=== PATIENT | male | born 1960 | race Hispanic/Latino ===

== ENCOUNTER → 2023-11-08 | Outpatient (CLI) | payer OTHER, MEDICARE | END | disposition home or self-care (01) | LOC: SHCH 08:48 | PROVIDERS: ATTEND Internal Medicine Cardiovascular Disease | DX: I35.0 Nonrheumatic aortic (valve) stenosis (principal); R01.1 Cardiac murmur, unspecified; E11.9 Type 2 diabetes mellitus without complications; E78.5 Hyperlipidemia, unspecified | CPT/HCPCS: 93306 ==

== ENCOUNTER → 2024-11-21 | Outpatient (CLI) | payer OTHER, MEDICARE ==
--- NOTE | 2024-11-23 07:21 | HMCSR ---
APPROVED REPORT Bilateral Lower Extremity Venous Study for DVT., Venous Competence. Indications i87.1,i87.2 Vein Imaging CFV (R): Normal flow, augmentation and compression. No evidence of DVT. 11.9mm 344ms of reflux. SFJ (R): Normal flow, augmentation and compression. No evidence of DVT. FEM (R): Normal flow, augmentation and compression. No evidence of DVT. POP (R): Normal flow, augmentation and compression. No evidence of DVT. DFV (R): Normal flow, augmentation and compression. No evidence of DVT. PTV (R): Normal flow, augmentation and compression. No evidence of DVT. Peroneals (R): Normal flow, augmentation and compression. No evidence of DVT. CFV (L): Normal flow, augmentation and compression. No evidence of DVT. 12.2mm 4050ms of reflux. SFJ (L): Normal flow, augmentation and compression. No evidence of DVT. FEM (L): Normal flow, augmentation and compression. No evidence of DVT. POP (L): Normal flow, augmentation and compression. No evidence of DVT. DFV (L): Normal flow, augmentation and compression. No evidence of DVT. PTV (L): Normal flow, augmentation and compression. No evidence of DVT. Peroneals (L): Normal flow, augmentation and compression. No evidence of DVT. Technologist Impression Deep veins of the bilateral lower extremities appear patent and compressible without thrombus. Deep venous reflux noted in the LCFV. Superficial venous insufficiency noted in the RGSV at calf. RGSV junction 6.9mm 256ms thigh 5.1mm 0.0ms knee 5.0mm 0.0ms calf 3.2mm 633ms RSSV prox 2.9mm 0.0ms mid 2.7mm 311ms LGSV junction 7.0mm 0.0ms thigh 4.6mm 283ms knee 3.6mm 372ms calf 3.6mm 0.0ms LSSV prox 3.7mm 0.0ms mid 2.4mm 0.0ms Conclusion Deep venous reflux noted in the LCFV. Superficial venous insufficiency noted in the RGSV at calf. Consider formal venography with IVUS if clinically indicated Conclusion Deep venous reflux noted in the LCFV. Superficial venous insufficiency noted in the RGSV at calf. Consider formal venography with IVUS if clinically indicated
--- NOTE | 2024-11-23 07:23 | HMCSR ---
APPROVED REPORT EXAM: Two-dimensional and M-mode echocardiogram with Doppler and color Doppler. INDICATION ICD: I35.0 Non-rheumatic aortic valve stenosis Murmur 2D Dimensions RVDd4.7 cmLVEF(%)41.5 (>50%)LVED Vol(simp.)180.0 mL IVSd1.5 (0.7-1.1cm)FS(%)21 %LVES Vol(simp.)106.0 mL LVDd5.5 (3.8-5.6cm)Ao Root(2D)3.0 (2.0-3.7cm)LVEF(%, simp.)41 % PWd1.4 (0.7-1.1cm)LVOT diam2.4 (1.8-2.4cm)LA ESV INDEX (BP)36.24 mL/m2 LVDs4.3 (2.5-4.0cm)IVC diam1.8 cm Deformation Strain Apical 4-13.2 % Apical 2-10.0 % Apical 3-11.2 % Global Strain-11.5 % Aortic Valve AoV Vmax3.3 m/Catherine Peak GR43.9 mmHgLVOT Vmax1.0 m/s AoV VTI0.8 mAo Mean GR27.2 mmHgLVOT VTI0.23 m GILLES (VMAX)1.4 cm2AVA (VTI) 1.4 cm2 Mitral Valve MV E Vmax80.0 cm/sDECEL Oxgy100 ms MV A Vmax93.0 cm/sP 1/2 T52 ms E/A ratio0.9MVA (PHT)4.3 cm2 TDI E/E' [place]43.9E/E' Eopvcba37.9 Pulmonary Valve PV Vmax1.1 m/sPV VTI0.23 mPV Mean GR3 mmHg PV Peak GR5.0 mmHg Tricuspid Valve RAP (EST) 8 mmHg Left Ventricle The left ventricle is borderline dilated. Evidence of lateral and inferolateral wall hypokinesis Ther e is moderate concentric left ventricular hypertrophy. LVEF is 40-45%. GLS rate is -11.5%. Grade 2 di astolic dysfunction. Right Ventricle The right ventricle is moderately to severely dilated. The right ventricular systolic function is nor mal. Atria The left atrium is mildly dilated. The right atrium is mildly dilated. Aortic Valve Aortic valve is trileaflet. The aortic valve is calcified and displays decreased opening. Trace aorti c regurgitation. Calculated aortic valve area is 1.4 cm2 with maximum pressure gradient of 43.9 mmHg and mean pressure gradient of 27.2 mmHg. Mitral Valve Mitral valve leaflets are mildly sclerotic but open well. Mitral annular calcification is mild. Yvette l regurgitation is trace. There is no mitral valve stenosis. Tricuspid Valve The tricuspid valve leaflets appear normal. There is trace tricuspid regurgitation. Pulmonic Valve The pulmonic valve leaflets are thin and pliable; valve motion is normal. There is trace pulmonic domi vular regurgitation. Great Vessels The aortic root is normal in size. IVC is dilated and collapses >50% with inspiration. Pericardium No pericardial effusion. Conclusion LVEF is 40-45%. GLS rate is -11.5%. Grade 2 diastolic dysfunction. Evidence of lateral and inferolateral wall hypokinesis Aortic valve is trileaflet. The aortic valve is calcified and displays decreased opening. Calculated aortic valve area is 1.4 cm2 with maximum pressure gradient of 43.9 mmHg and mean pressure gradient of 27.2 mmHg. The aortic root is normal in size. No pericardial effusion.
== END | disposition home or self-care (01) ==
LOC: SHCH 13:47
PROVIDERS: ATTEND Internal Medicine Cardiovascular Disease
DX: I08.0 Rheumatic disorders of both mitral and aortic valves (principal); I87.2 Venous insufficiency (chronic) (peripheral); I87.1 Compression of vein; R01.1 Cardiac murmur, unspecified
CPT/HCPCS: 93306; 93356; 93970